=== PATIENT | male | born 2000 | race Hispanic/Latino ===

== ENCOUNTER 2021-03-29 00:58 | Emergency (ER) | payer OTHER ==
[~2021-03-29] VITALS: Ht 182.9 cm; Wt 104.3 kg
[2021-03-29 01:09] VITALS: BP 139/79
[2021-03-29] MEDS ORDERED: LIDOCAINE HCL 2% VISCOUS 15 ML UDCUP ONE (01:18)
[2021-03-29] MEDS ORDERED: ONDANSETRON 4MG INJ ONE (01:18)
[2021-03-29] MEDS ORDERED: MAG/ALUM/SIMETH 30 ML UDCUP ONE (01:19)
[2021-03-29] MEDS ORDERED: MAG/ALUM/SIMETH 30 ML UDCUP PO ONE (01:30)
[2021-03-29] MEDS ORDERED: LIDOCAINE HCL 2% VISCOUS 15 ML UDCUP PO ONE (01:30)
[2021-03-29] MEDS ORDERED: ACETAMINOPHEN 500 MG TABLET ONE (02:21)
== END 2021-03-29 02:19 | disposition home or self-care (01) ==
LOC: EDH 00:58
DX: K22.4 Dyskinesia of esophagus (principal); R07.89 Other chest pain; Z79.899 Other long term (current) drug therapy
CPT/HCPCS: 71045; 93005; 96374; 99284; J2405

== ENCOUNTER → 2021-04-03 | Outpatient (CLI) | payer OTHER | END | disposition home or self-care (01) | LOC: RAH 11:50 | DX: R10.9 Unspecified abdominal pain (principal) | CPT/HCPCS: 74018 ==